=== PATIENT | female | born 1980 | race African-American/Black ===

== ENCOUNTER 2017-08-20 08:01 | Emergency (ER) | payer MEDICAID ==
--- NOTE | 2017-08-20 09:11 | ER Document Report ---
ED General - General Chief Complaint: Vaginal Discharge Stated Complaint: MOUTH PAIN Time Seen by Provider: 08/20/17 08:21 Mode of Arrival: Ambulatory Information source: Patient Notes: 36-year-old female presents with complaints of vaginal discharge. Patient states it feels like her previous bacterial vaginosis, patient does admit that she had recent gonorrhea chlamydia and bacterial vaginosis and now believes she has thrush as well. Patient is also concerned she may be patient denies a history of HIV or diabetes or recent steroid use TRAVEL OUTSIDE OF THE [place] IN LAST 30 DAYS: No - HPI Onset: Last week Onset/Duration: Persistent Quality of pain: Burning Severity: Mild Pain Level: 1 Associated symptoms: Other Exacerbated by: Denies Relieved by: Denies Similar symptoms previously: Yes Recently seen / treated by doctor: Yes - Related Data Allergies/Adverse Reactions: hydrocodone bitartrate [From Vicodin] Allergy (Intermediate, Verified 12/22/15 09:22) Generalized rash latex [Latex] Allergy (Mild, Verified 12/22/15 09:22) rash xylometazoline HCl [From Triaminic] Allergy (Mild, Verified 12/22/15 09:22) nose bleeds acetaminophen [From Vicodin] Allergy (Verified 12/22/15 09:22) chlorpheniramine [From Triaminic] Allergy (Verified 12/22/15 09:22) chlorpheniramine maleate [From Triaminic] Allergy (Verified 12/22/15 09:22) dextromethorphan HBr [From Triaminic] Allergy (Verified 12/22/15 09:22) diphenhydramine HCl [From Triaminic] Allergy (Verified 12/22/15 09:22) phenylephrine HCl [From Triaminic] Allergy (Verified 12/22/15 09:22) phenylpropanolamine HCl [From Triaminic] Allergy (Verified 12/22/15 09:22) Past Medical History - Social History Smoking Status: Never Smoker Cigarette use (# per day): No Chew tobacco use (# tins/day): No Smoking Education Provided: No Frequency of alcohol use: Occasional Drug Abuse: Marijuana Family History: Reviewed & Not Pertinent Patient has suicidal ideation: No Patient has homicidal ideation: No - Past Medical History Cardiac Medical History: Reports: Hx Hypertension Denies: Hx Coronary Artery Disease, Hx Heart Attack Pulmonary Medical History: Denies: Hx Asthma, Hx Bronchitis, Hx COPD, Hx Pneumonia Neurological Medical History: Denies: Hx Cerebrovascular Accident, Hx Seizures Endocrine Medical History: Reports: Hx Hypothyroidism Renal/ Medical History: Denies: Hx Peritoneal Dialysis GI Medical History: Reports: Hx Crohn's Disease Musculoskeltal Medical History: Denies Hx Arthritis Past Surgical History: Reports: Hx Section - x2 - Immunizations Hx Diphtheria, Pertussis, Tetanus Vaccination: Yes Review of Systems - Review of Systems Notes: REVIEW OF SYSTEMS: CONSTITUTIONAL : Denies fever, chills, or sweats. Denies recent illness. EENT: Admits to white spots in mouth CARDIOVASCULAR: Denies chest pain. Denies palpitations or racing or irregular heart beat. Denies ankle edema. RESPIRATORY: Denies cough, cold, or chest congestion. Denies shortness of breath, difficulty breathing, or wheezing. GASTROINTESTINAL: Denies abdominal pain or distention. Denies nausea, vomiting , or diarrhea. Denies blood in vomitus, stools, or per rectum. Denies black, tarry stools. Denies constipation. GENITOURINARY: Denies difficulty urinating, painful urination, burning, frequency, blood in urine, or discharge. FEMALE GENITOURINARY: Denies vaginal bleeding, heavy or abnormal periods, irregular periods. Admits vaginal discharge with odor MUSCULOSKELETAL: Denies back or neck pain or stiffness. Denies joint pain or swelling. SKIN: Denies rash, lesions or sores. HEMATOLOGIC : Denies easy bruising or bleeding. LYMPHATIC: Denies swollen, enlarged glands. NEUROLOGICAL: Denies confusion or altered mental status. Denies passing out or loss of consciousness. Denies dizziness or lightheadedness. Denies headache. Denies weakness or paralysis or loss of use of either side. Denies problems with gait or speech. Denies sensory loss, numbness, or tingling. Denies seizures. PSYCHIATRIC: Denies anxiety or stress. Denies depression, suicidal ideation, or homicidal ideation. ALL OTHER SYSTEMS REVIEWED AND NEGATIVE. PHYSICAL EXAMINATION: GENERAL: Well-appearing, well-nourished and in no acute distress. HEAD: Atraumatic, normocephalic. EYES: Pupils equal round and reactive to light, extraocular movements intact, conjunctiva are normal. ENT: Nares patent, oropharynx clear without exudates. Moist mucous membranes. Thrush-like appearance on tongue NECK: Normal range of motion, supple without lymphadenopathy LUNGS: Breath sounds clear to auscultation bilaterally and equal. No wheezes rales or rhonchi. HEART: Regular rate and rhythm without murmurs ABDOMEN: Soft, nontender, nondistended abdomen. No guarding, no rebound. No masses appreciated. Female : White pelvic discharge noted Musculoskeletal: Normal range of motion, no pitting or edema. No cyanosis. NEUROLOGICAL: Cranial nerves grossly intact. Normal speech, normal gait. Normal sensory, motor exams PSYCH: Normal mood, normal affect. SKIN: Warm, Dry, normal turgor, no rashes or lesions noted. Dictation was performed using [employer] voice recognition software Physical Exam - Vital signs Vitals: Temp Pulse Resp BP Pulse Ox 98.4 F 75 16 118/75 99 08/20/17 08:06 08/20/17 08:06 08/20/17 08:06 08/20/17 08:06 08/20/17 08:06 Course - Re-evaluation Re-evalutation: 08/20/17 10:26 Patient will be tested for HIV for the concerns of the thrush, gonorrhea chlamydia and wet prep Wet prep was consistent with bacterial vaginosis, patient will be treated for this. She will be given nystatin swish and swallow for the thrush. She must follow-up with the health department for further care Urinalysis will be sent for culture After performing a Medical Screening Examination, I estimate there is LOW risk for ACUTE APPENDICITIS, BOWEL OBSTRUCTION, ACUTE CHOLECYSTITIS, PERFORATED DIVERTICULITIS, INCARCERATED HERNIA, PANCREATITIS, PELVIC INFLAMMATORY DISEASE, PERFORATED ULCER, ECTOPIC , or TUBO-OVARIAN ABSCESS, thus I consider the discharge disposition reasonable. Also, there is no evidence or peritonitis , sepsis, or toxicity. I have reevaluated this patient multiple times and no significant life threatening changes are noted. The patient and I have discussed the diagnosis and risks, and we agree with discharging home with close follow-up with the understanding that symptoms and presentations can change. We also discussed returning to the Emergency Department immediately if new or worsening symptoms occur. We have discussed the symptoms which are most concerning (e.g., bloody stool, fever, changing or worsening pain, vomiting) that necessitate immediate return. - Vital Signs Vital signs: Temp Pulse Resp BP Pulse Ox 98.4 F 75 16 118/75 99 08/20/17 08:06 08/20/17 08:06 08/20/17 08:06 08/20/17 08:06 08/20/17 08:06 - Laboratory Laboratory results interpreted by me: 08/20/17 09:36 Urine Protein 30 H Urine Ketones 80 H Urine Blood MODERATE H Urine Urobilinogen 2.0 H Ur Leukocyte Esterase LARGE H Discharge - Discharge Clinical Impression: Thrush, oral, Bacterial vaginosis Condition: Stable Disposition: HOME, SELF-CARE Instructions: Vaginosis, Bacterial ([facility]) Prescriptions: Metronidazole 70 gm VG DAILY #5 gel.w.appl Nystatin 100,000 unit PO BID 7 Days ml Referrals: LUIS KHAN DO [Primary Care Provider] - [facility] - Follow up tomorrow
[2017-08-20 09:55] LABS: T.VAGINALIS (WET MOUNT) NO TRICHOMONAS SEEN; YEAST (WET MOUNT) NO YEAST SEEN
[2017-08-20 09:56] LABS: BACTERIA (WET MOUNT) 3+ BACTERIA SEEN; EPITHELIALS (WET MOUNT) 3+ EPITHELIALS SEEN; WBCS (WET MOUNT) FEW WBCS SEEN
[2017-08-20 10:03] LABS: APPEARANCE,URINE CLOUDY; BILIRUBIN,URINE NEGATIVE (NEGATIVE); COLOR,URINE YELLOW; GLUCOSE, URINE NEGATIVE (NEGATIVE); KETONES,URINE 80 mg/dL (NEGATIVE); LEUKOCYTE ESTERASE,URINE LARGE (NEGATIVE); NITRITE,URINE NEGATIVE (NEGATIVE); PROTEIN,URINE 30 mg/dL (NEGATIVE)
[2017-08-20 10:36] VITALS: BP 117/75
[2017-08-20 11:19] LABS: CHLAM PCR NOT DETECTED (NOT DETECT); GON PCR NOT DETECTED (NOT DETECT)
== END 2017-08-20 10:36 | disposition home or self-care (01) ==
LOC: ER 08:01
DX: N76.0 Acute vaginitis (principal); B96.89 Other specified bacterial agents as the cause of diseases classified elsewhere; B37.0 Candidal stomatitis; I10 Essential (primary) hypertension
CPT/HCPCS: 36415; 81001; 81025; 86701; 87086; 87088; 87210; 87491; 87591; 99283

== ENCOUNTER 2017-11-15 10:00 | Emergency (ER) | payer MEDICAID ==
[2017-11-15 10:47] VITALS: BP 130/81
--- NOTE | 2017-11-15 11:15 | ER Document Report ---
ED General - General Chief Complaint: STD Exposure Stated Complaint: STD CHECK Time Seen by Provider: 11/15/17 11:14 Mode of Arrival: Ambulatory Information source: Patient TRAVEL OUTSIDE OF THE [place] IN LAST 30 DAYS: No - HPI Notes: 37-year-old female presents to the ED for STD evaluation. Patient states that she was diagnosed with an STD a month ago, forgot to pickup driver the meds from 1 month ago and States she just remembered. Patient denies any fever chills, vaginal pain or vaginal discharge. Unsure of . States she has had unprotected sexual intercourse. Denies fevers, chills, chest pain,palpitations , shortness of breath, dyspnea, nausea, vomiting, diarrhea, abdominal pain, hematuria,blurred vision, double vision, loss of vision, speech changes, LH, dizziness, syncope, headaches, wheezing, ST, URI, neck pain, weakness, bowel or bladder dysfunction, saddle anesthesia, numbness or tingling in bilateral upper or lower extremities equally, muscle paralysis, weakness in bilateral upper or lower extremities equally or rash. Denies IV drug use. - Related Data Allergies/Adverse Reactions: hydrocodone bitartrate [From Vicodin] Allergy (Intermediate, Verified 12/22/15 09:22) Generalized rash latex [Latex] Allergy (Mild, Verified 12/22/15 09:22) rash xylometazoline HCl [From Triaminic] Allergy (Mild, Verified 12/22/15 09:22) nose bleeds acetaminophen [From Vicodin] Allergy (Verified 12/22/15 09:22) chlorpheniramine [From Triaminic] Allergy (Verified 12/22/15 09:22) chlorpheniramine maleate [From Triaminic] Allergy (Verified 12/22/15 09:22) dextromethorphan HBr [From Triaminic] Allergy (Verified 12/22/15 09:22) diphenhydramine HCl [From Triaminic] Allergy (Verified 12/22/15 09:22) phenylephrine HCl [From Triaminic] Allergy (Verified 12/22/15 09:22) phenylpropanolamine HCl [From Triaminic] Allergy (Verified 12/22/15 09:22) Past Medical History - General Information source: Patient - Social History Smoking Status: Unknown if Ever Smoked Family History: Reviewed & Not Pertinent - Past Medical History Cardiac Medical History: Reports: Hx Hypertension Denies: Hx Coronary Artery Disease, Hx Heart Attack Pulmonary Medical History: Denies: Hx Asthma, Hx Bronchitis, Hx COPD, Hx Pneumonia Neurological Medical History: Denies: Hx Cerebrovascular Accident, Hx Seizures Endocrine Medical History: Reports: Hx Hypothyroidism Renal/ Medical History: Denies: Hx Peritoneal Dialysis GI Medical History: Reports: Hx Crohn's Disease Musculoskeletal Medical History: Denies Hx Arthritis Past Surgical History: Reports: Hx Section - x2 - Immunizations Hx Diphtheria, Pertussis, Tetanus Vaccination: Yes Review of Systems - Review of Systems Constitutional: No symptoms reported EENT: No symptoms reported Cardiovascular: No symptoms reported Respiratory: No symptoms reported Gastrointestinal: No symptoms reported Genitourinary: See HPI Female Genitourinary: No symptoms reported Musculoskeletal: No symptoms reported Skin: No symptoms reported Hematologic/Lymphatic: No symptoms reported Neurological/Psychological: No symptoms reported Physical Exam - Vital signs Vitals: Temp Pulse Resp BP Pulse Ox 98.0 F 65 14 130/81 H 100 11/15/17 10:46 11/15/17 10:46 11/15/17 10:46 11/15/17 10:46 11/15/17 10:46 - Notes Notes: Unable to do physical examination because patient refused and walked out of room and she walked out of the room, did not return. Course - Re-evaluation Re-evalutation: 11/15/17 16:19 37-year-old female presents to the ED with complaints of STD evaluation, patient states a month ago she was evaluated for STDs, states she had both chlamydia and gonorrhea but forgot to pickup driver medication for it. This provider explained to patient that she needs a pelvic exam since it has been 1 month, she also will need to be evaluated for trichomonas which is a part of the STD workup, patient refused any kind of examination, states she just wanted antibiotics and wanted to leave. This provider explained to her that she needs a pelvic examination, to make sure there are no lesions, etc., patient refused and stated that she just wanted antibiotics. When this provider tried to explain to her the standard of care for STD evaluation and females, she walked out of the emergency room. This provider was unable to give her discharge information, she states she was going to go to the health department while they "just give her the medications. Chlamydia and gonorrhea were evaluated through urine sample, both came back negative. Tried to reach patient multiple times to however unable to leave a message. Patient eloped - Vital Signs Vital signs: Temp Pulse Resp BP Pulse Ox 98.0 F 65 14 130/81 H 100 11/15/17 10:46 11/15/17 10:46 11/15/17 10:46 11/15/17 10:46 11/15/17 10:46 Discharge - Discharge Clinical Impression: STD exposure Condition: Good Disposition: ELOPED Referrals: LUIS KHAN DO [Primary Care Provider] - Follow up as needed
[2017-11-15 12:38] LABS: CHLAM PCR NOT DETECTED (NOT DETECT); GON PCR NOT DETECTED (NOT DETECT)
== END 2017-11-15 12:25 | disposition left against medical advice (07) ==
LOC: ER 10:00
DX: Z20.2 Contact with and (suspected) exposure to infections with a predominantly sexual mode of transmission (principal); I10 Essential (primary) hypertension
CPT/HCPCS: 87491; 87591; 99281

== ENCOUNTER 2017-11-18 11:22 | Emergency (ER) | payer MEDICAID ==
[2017-11-18 11:34] VITALS: BP 120/71
--- NOTE | 2017-11-18 12:57 | ER Document Report ---
ED Medical Screen (RME) - General Chief Complaint: STD Exposure Stated Complaint: STD CHECK Time Seen by Provider: 11/18/17 12:54 Mode of Arrival: Ambulatory Information source: Patient TRAVEL OUTSIDE OF THE [place] IN LAST 30 DAYS: No - HPI Patient complains to provider of: STD check Onset: Other - pt states she was diagnosed with STD recently but doesn't think she was treated. Also wants lump in vaginal area checked. - Related Data Allergies/Adverse Reactions: hydrocodone bitartrate [From Vicodin] Allergy (Intermediate, Verified 12/22/15 09:22) Generalized rash latex [Latex] Allergy (Mild, Verified 12/22/15 09:22) rash xylometazoline HCl [From Triaminic] Allergy (Mild, Verified 12/22/15 09:22) nose bleeds acetaminophen [From Vicodin] Allergy (Verified 12/22/15 09:22) chlorpheniramine [From Triaminic] Allergy (Verified 12/22/15 09:22) chlorpheniramine maleate [From Triaminic] Allergy (Verified 12/22/15 09:22) dextromethorphan HBr [From Triaminic] Allergy (Verified 12/22/15 09:22) diphenhydramine HCl [From Triaminic] Allergy (Verified 12/22/15 09:22) phenylephrine HCl [From Triaminic] Allergy (Verified 12/22/15 09:22) phenylpropanolamine HCl [From Triaminic] Allergy (Verified 12/22/15 09:22) Past Medical History - Past Medical History Cardiac Medical History: Reports: Hx Hypertension Denies: Hx Coronary Artery Disease, Hx Heart Attack Pulmonary Medical History: Denies: Hx Asthma, Hx Bronchitis, Hx COPD, Hx Pneumonia Neurological Medical History: Denies: Hx Cerebrovascular Accident, Hx Seizures Endocrine Medical History: Reports: Hx Hypothyroidism Renal/ Medical History: Denies: Hx Peritoneal Dialysis GI Medical History: Reports: Hx Crohn's Disease Musculoskeltal Medical History: Denies Hx Arthritis Past Surgical History: Reports: Hx Section - x2 - Immunizations Hx Diphtheria, Pertussis, Tetanus Vaccination: Yes Physical Exam - Vital signs Vitals: Temp Pulse Resp BP Pulse Ox 98.6 F 76 18 120/71 100 11/18/17 11:32 11/18/17 11:32 11/18/17 11:32 11/18/17 11:32 11/18/17 11:32 Course - Vital Signs Vital signs: Temp Pulse Resp BP Pulse Ox 98.6 F 76 18 120/71 100 11/18/17 11:32 11/18/17 11:32 11/18/17 11:32 11/18/17 11:32 11/18/17 11:32 Doctor's Discharge - Discharge Referrals: LUIS KHAN DO [Primary Care Provider] - Follow up as needed
== END 2017-11-18 13:41 | disposition left against medical advice (07) ==
LOC: ER 11:22
DX: R22.2 Localized swelling, mass and lump, trunk (principal); I10 Essential (primary) hypertension; Z53.20 Procedure and treatment not carried out because of patient's decision for unspecified reasons; Z88.5 Allergy status to narcotic agent; Z91.040 Latex allergy status; Z88.6 Allergy status to analgesic agent; Z88.8 Allergy status to other drugs, medicaments and biological substances
CPT/HCPCS: 99281; 99283

== ENCOUNTER 2018-05-26 08:33 | Day surgery (SDC) | payer MEDICAID ==
[~2018-05-26 08:33] MED LIST: PROPOFOL INJ 200 MG/20 ML VIAL IV ONE
[2018-05-26 11:13] VITALS: BP 119/68
--- NOTE | 2018-05-26 11:30 | Operative Report ---
Operative Report DATE OF SURGERY: 05/26/18 Operative Report: The risks, benefits and alternatives of the procedure including the risk of bleeding, perforation requiring surgery have been explained to the patient in detail and informed consent is obtained. Patient is placed in a left, lateral decubital position. Timeout was called. Propofol medication is administered. Rectal examination is done which did not reveal any masses, tears or fissures. An Olympus videoscope was introduced into the patient's rectum. The scope was then carefully advanced all the way to the cecum. The cecum was identified by the usual anatomical landmarks of the ileocecal valve as well as the appendiceal office. Photodocumentation is obtained. Intubation of the terminal ileum is done. Prep was good. Scope was then sequentially pulled back via the various segments of the colon including the ascending colon, hepatic flexure, transverse colon, splenic flexure, descending colon and finally into the rectosigmoid portions of the colon. Retroflexion maneuver was performed. The risks benefits and alternatives of the procedure explained to the patient in detail and informed consent is obtained.A GIF Olympus video scope was inserted into the patient's mouth and hypopharynx, the esophagus is identified intubated and insufflated ,the scope was then advanced through the esophagus stomach and duodenum ,retroflexion maneuver is done ,the esophagus stomach and first and second portions of the duodenum examined. PREOPERATIVE DIAGNOSIS: Change in bowel habits. Epigastric pain POSTOPERATIVE DIAGNOSIS: Terminal ileitis status post biopsy. Internal hemorrhoids. Gastritis status post biopsy rule out Helicobacter pylori OPERATION: Colonoscopy with biopsy. EGD with biopsy SURGEON: VENANCIO MILLER ANESTHESIA: LMAC TISSUE REMOVED OR ALTERED: As noted above COMPLICATIONS: None. ESTIMATED BLOOD LOSS: None. INTRAOPERATIVE FINDINGS: As noted above. PROCEDURE: Patient tolerated the procedure well. No immediate postprocedure complications are noted. Patient discharged in good condition. Discharge date 05/26/2018. Discharge diet: Regular. Discharge activity: Regular. 2-3-week follow-up to discuss findings. Patient is instructed to call the office or proceed to the emergency room should there be any further problems or questions. I will wait on the pathology.
== END 2018-05-26 11:22 | disposition home or self-care (01) ==
LOC: END 08:33
PROVIDERS: ATTEND Internal Medicine Gastroenterology
DX: K52.9 Noninfective gastroenteritis and colitis, unspecified (principal); K64.8 Other hemorrhoids; K29.50 Unspecified chronic gastritis without bleeding; I10 Essential (primary) hypertension; E89.0 Postprocedural hypothyroidism; Z88.5 Allergy status to narcotic agent; Z91.040 Latex allergy status; Z88.8 Allergy status to other drugs, medicaments and biological substances
CPT/HCPCS: 43239; 45380; 88342 ×2; 88305 ×2; J2704; 813

== ENCOUNTER → 2018-11-17 | Outpatient (CLI) | payer MEDICAID | LOC: OD 11:14 | PROVIDERS: ATTEND Nurse Practitioner Family | DX: N91.2 Amenorrhea, unspecified (principal) | CPT/HCPCS: 36415; 84703 ==

== ENCOUNTER → 2019-10-08 | Outpatient (CLI) | payer MEDICAID ==
--- NOTE | 2019-10-08 11:02 | WOMENS IMAGING REPORT ---
EXAM DESCRIPTION: TRANSVAGINAL ULTRASOUND IMAGES COMPLETED DATE/TIME: 10/08/2019 10:50 am REASON FOR STUDY: R10.2 PELVIC AND PERINEAL PAIN R10.2 PELVIC AND PERINEAL PAIN COMPARISON: None. TECHNIQUE: Dynamic and static grayscale images acquired of the pelvis via transvaginal approach and recorded on PACS. Additional selected color Doppler and spectral images recorded. LIMITATIONS: None. FINDINGS: UTERUS: Contour normal. No mass. ENDOMETRIAL STRIPE: No focal or generalized thickening. No masses. CERVIX: No nabothian cysts. RIGHT OVARY AND DOPPLER: The right ovary is not visualized due to overlying bowel gas. LEFT OVARY AND DOPPLER: Normal size. No worrisome masses. Normal arterial vascular flow without evide nce for torsion. FREE FLUID: None noted. OTHER: No other significant finding. MEASUREMENTS: UTERUS: 6.9 x 4.8 x 5.6 cm. ENDOMETRIAL STRIPE: 7.0 mm. RIGHT OVARY: Not visualized. LEFT OVARY: 2.4 x 1.8 x 2.2 cm. IMPRESSION: Nonvisualization of the right ovary. No other significant findings. TECHNICAL DOCUMENTATION: JOB ID: [id number] [employer]- All Rights Reserved Rev Reading location - IP/workstation name: [email or web address]
== END ==
LOC: WI 09:57
PROVIDERS: ATTEND Nurse Practitioner Family
DX: R10.2 Pelvic and perineal pain (principal)
CPT/HCPCS: 76830